=== PATIENT | female | born 1975 | race Caucasian/White ===

== ENCOUNTER → 2017-07-20 | Outpatient (CLI) | payer BC ==
[~2017-07-20] MED LIST: CIPR-255 PO; FAMO20TA11 PO; ROSU20TA PO
--- NOTE | 2017-07-20 14:34 | DIAGNOSTIC IMAGING REPORT ---
[facility] CLINICAL HISTORY: Nephrolithiasis. Bladder cancer. FINDINGS: 2 AP supine abdominal radiographs are correlated with abdominal CT dated 06/28/2016. There is no radiographic evidence of nephrolithiasis. Tiny phleboliths are observed in the left hemipelvis. No bowel obstruction is seen. The bony structures appear intact. IMPRESSION: There is no radiographic evidence of nephrolithiasis. Electronically signed by: Goyo Zabala M.D. 07/20/2017 2:33 PM Dictated Date/Time: 07/20/2017 2:31 PM
== END | disposition home or self-care (01) ==
LOC: C.RAD 12:10
PROVIDERS: ATTEND Urology
DX: C67.9 Malignant neoplasm of bladder, unspecified (principal); N20.0 Calculus of kidney